=== PATIENT | female | born 1985 | race Two or more races ===

== ENCOUNTER 2024-08-09 20:39 | Emergency (ER) | payer SELFPAY ==
[2024-08-09 20:51] VITALS: BP 133/84; PULSE 76; RESP 18; TEMP 98.1; BMI 33.3
[2024-08-09] MEDS ORDERED: ACETAMINOPHEN 325 MG TABLET (FP) ONE (21:07)
[2024-08-09] MEDS: ACETAMINOPHEN 325 MG TABLET (FP) PO ONE (21:09)
== END 2024-08-09 21:57 | disposition home or self-care (01) ==
LOC: JER 20:39
DX: S09.90XA Unspecified injury of head, initial encounter (principal); M54.2 Cervicalgia; W20.8XXA Other cause of strike by thrown, projected or falling object, initial encounter; Y99.0 Civilian activity done for income or pay
CPT/HCPCS: 70450-TC; 99284-25